=== PATIENT | male | born 1980 | race Caucasian/White ===

== ENCOUNTER 2022-11-26 13:17 | Inpatient (IN) | payer OTHER ==
[2022-11-26 14:27] VITALS: BMI 22.2
[2022-11-26] MEDS ORDERED: BENZOCAINE/MENTHOL (CHLORASEPTIC ) LOZENGE MM PRN (15:57)
[2022-11-26] MEDS ORDERED: MAGNESIUM HYDROX 2400MG/30ML ORAL SUSPENSION 30 ML CUP PO PRN (15:57)
[2022-11-26] MEDS ORDERED: POLYETHYLENE GLYCOL (HEALTHYLAX) 3350 17 GM PACKET PO PRN (15:57)
[2022-11-26] MEDS ORDERED: ONDANSETRON *ODT* 4 MG TABLET SL PRN (15:57)
[2022-11-26] MEDS ORDERED: NALOXONE HCL 0.4 MG/ML VIAL IM PRN (15:57)
[2022-11-26] MEDS ORDERED: NICOTINE POLACRILEX 2 MG GUM BUC PRN (15:57)
[2022-11-26] MEDS ORDERED: MAG HYDROX/AL HYDROX/SIMETH 30 ML UNIT-DOSE CUP PO PRN (15:57)
[2022-11-26] MEDS ORDERED: LOPERAMIDE HCL 2 MG CAPSULE PO PRN (15:57)
[2022-11-26] MEDS ORDERED: BISMUTH SUBSALICYLATE 524 MG/30 ML PO PRN (15:57)
[2022-11-26] MEDS ORDERED: NALOXONE HCL (KLOXXADO) 8 MG SPRAY NS PRN (15:57)
[2022-11-26] MEDS ORDERED: IBUPROFEN 400 MG TABLET (FP) PO PRN (15:57)
[2022-11-26] MEDS ORDERED: guaiFENesin 200 MG/10 ML 10 ML UNIT-DOSE CUPS PO PRN (15:57)
[2022-11-26] MEDS ORDERED: ACETAMINOPHEN 325 MG TABLET (FP) PO PRN ×2 (15:57)
[2022-11-26] MEDS ORDERED: DICYCLOMINE HCL 10 MG CAPSULE PO PRN (15:57)
[2022-11-26] MEDS ORDERED: P-EPHED 60MG/TRIPROLIDI 2.5MG TABLET PO PRN (15:57)
[2022-11-26] MEDS ORDERED: methaDONE HCL 10 MG TABLET (FOR DETOX USE ONLY) ONE (16:29)
[2022-11-26] MEDS ORDERED: methaDONE HCL 10 MG TABLET (FOR DETOX USE ONLY) PO ONE (16:30)
[2022-11-26] MEDS: cloNIDine HCL 0.1 MG TABLET PO PRN (17:40)
[2022-11-26] MEDS: hydrOXYzine PAMOATE 25 MG CAPSULE (FP) PO PRN (17:40)
[2022-11-26] MEDS: THIAMINE HCL 100 MG TABLET (FP) PO SCH (22:53)
[2022-11-26] MEDS: MELATONIN 5 MG TABLETS PO PRN (22:53)
[2022-11-27] MEDS: PRENATAL VITAMINS W/ FOLIC ACID TABLET (FP) PO SCH (10:53)
[2022-11-27] MEDS: IBUPROFEN 600 MG TABLET (FP) PO PRN (10:55)
[2022-11-27 11:03] LABS: HEMATOCRIT 45.7 % (35.4-49); HEMOGLOBIN 15.3 GM/dL (11.7-16.9); MCH 32.8 pg (25.7-33.7); MCHC 33.5 g/dl (32.0-35.9); MEAN PLT VOLUME 7.7 fl (7.5-11.1); PLATELET COUNT 340 10^3/uL (134-434); RBC 4.66 M/mm3 (4.00-5.60); RDW 12.8 % (11.9-15.9)
[2022-11-27 11:16] LABS: ALBUMIN 3.6 g/dl (3.4-5.0); BLOOD UREA NITROGEN 12.5 mg/dL (7-18); CALCIUM 9.5 mg/dL (8.5-10.1)
[2022-11-27 11:19] LABS: CREATININE 0.8 mg/dL (0.55-1.3)
[2022-11-27 11:21] LABS: BILIRUBIN,TOTAL 0.8 mg/dL (0.2-1); TOT PROT 7.5 g/dl (6.4-8.2)
[2022-11-27] MEDS: cloNIDine HCL 0.1 MG TABLET PO PRN (22:21)
[2022-11-27] MEDS: diazePAM 5 MG TABLET PO PRN (22:21)
[2022-11-27] MEDS: MELATONIN 5 MG TABLETS PO PRN (22:21)
[2022-11-27] MEDS: THIAMINE HCL 100 MG TABLET (FP) PO SCH (22:21)
[2022-11-28] MEDS ORDERED: methaDONE HCL 10 MG TABLET (FOR DETOX USE ONLY) PO ONE (10:00)
[2022-11-28] MEDS: PRENATAL VITAMINS W/ FOLIC ACID TABLET (FP) PO SCH (10:21)
[2022-11-28] MEDS: diazePAM 5 MG TABLET PO PRN ×3 (10:22→22:27)
[2022-11-28] MEDS: METHOCARBAMOL 500 MG TABLET PO PRN (17:21)
[2022-11-28] MEDS: cloNIDine HCL 0.1 MG TABLET PO PRN (17:21)
[2022-11-28] MEDS: IBUPROFEN 600 MG TABLET (FP) PO PRN (22:26)
[2022-11-28] MEDS: MELATONIN 5 MG TABLETS PO PRN (22:27)
[2022-11-28] MEDS: THIAMINE HCL 100 MG TABLET (FP) PO SCH (22:27)
[2022-11-29] MEDS ORDERED: diazePAM 5 MG TABLET PO ONE (10:15)
[2022-11-29] MEDS: METHOCARBAMOL 500 MG TABLET PO PRN ×2 (10:49→22:34)
[2022-11-29] MEDS: PRENATAL VITAMINS W/ FOLIC ACID TABLET (FP) PO SCH (10:50)
[2022-11-29] MEDS: hydrOXYzine PAMOATE 25 MG CAPSULE (FP) PO PRN (22:34)
[2022-11-29] MEDS: MELATONIN 5 MG TABLETS PO PRN (22:34)
[2022-11-29] MEDS: THIAMINE HCL 100 MG TABLET (FP) PO SCH (22:34)
[2022-11-30] MEDS: IBUPROFEN 600 MG TABLET (FP) PO PRN (06:05)
[2022-11-30 06:56] VITALS: TEMP 98.2
[2022-11-30] MEDS ORDERED: methaDONE HCL 10 MG TABLET (FOR DETOX USE ONLY) PO ONE (10:00)
[2022-11-30] MEDS: PRENATAL VITAMINS W/ FOLIC ACID TABLET (FP) PO SCH (10:11)
[2022-11-30 10:17] VITALS: BP 142/88; PULSE 80; RESP 18
== END 2022-11-30 10:55 | disposition home or self-care (01) | DRG 773 ==
LOC: YASAS 13:17 → Y6N 16:16
PROVIDERS: ADMIT Allergy & Immunology; ATTEND Family Medicine
PROC: HZ2ZZZZ Detoxification Services for Substance Abuse Treatment (ICD-10-PCS; principal; 2022-11-26)
DX: F11.23 Opioid dependence with withdrawal (principal); F10.20 Alcohol dependence, uncomplicated; F14.20 Cocaine dependence, uncomplicated; F12.20 Cannabis dependence, uncomplicated; F17.210 Nicotine dependence, cigarettes, uncomplicated
CPT/HCPCS: 36415; 80053; 85027; 86780; 87811; C9803-CS; U0003; U0005